=== PATIENT | female | born 1990 | race Hispanic/Latino ===

== ENCOUNTER 2023-12-19 18:11 | Emergency (ER) | payer SELFPAY ==
[2023-12-19 20:17] LABS: Absolute Basophils 0.1 K/uL (0-0.5); Absolute Eosinophils 0.2 K/uL (0-0.5); Absolute Monocytes 0.8 K/uL (0.1-1.3); Absolute Neutrophil 6.6 K/uL (1.8-8.0); Eosinophils % 1.6 % (0-4.4); Hematocrit 32.8 % (36.0-45.0); Hemoglobin 11.1 g/dL (12.0-15.0); MCH 30.7 pg (27.0-35.0); MCHC 33.8 g/dL (32.0-36.0); MCV 90.7 fL (80-100); MPV 7.4 fL (7.6-11.3); Monocytes % 7.3 % (3.3-12.3); Neutrophils % 62.1 % (41.7-73.7); Nucleated Red Blood Cells % 0.1 % (0-0); Platelets 519 thou/uL (152-406); RBC Red Blood Cell Count 3.61 M/uL (3.86-4.86); Red Cell Distribution Width 13.1 % (12.1-15.2)
[2023-12-19 20:31] LABS: Anion Gap 10.9 mEq/L (5.0-15.0); Potassium 3.9 mEq/L (3.5-5.1)
[2023-12-19 21:03] LABS: Specific Gravity 1.008 (1.005-1.030)
[2023-12-19 21:11] LABS: Specific Gravity 1.007 (1.005-1.030); Sqamous Epithelial <5 /HPF (None Seen); Urine Bacteria 20-50 /HPF (<20); Urine Bilirubin NEGATIVE (Negative); Urine Blood 3+ (OVER) (Negative); Urine Clarity Extremely Turbid (Clear); Urine Color Light-Yellow (Yellow); Urine Culture Reflex Order NOT NEEDED; Urine Glucose NEGATIVE (Negative); Urine Ketones NEGATIVE (Negative); Urine Microscopic Reflex YN ORDER UMIC; Urine Mucus Slight /HPF (None Seen); Urine Nitrite 1+ (Negative); Urine Protein TRACE (Negative); Urine RBC >50 /HPF (None Seen); Urine Urobilinogen Normal (Normal); Urine WBC <5 /HPF (<5); Urine pH 5.5 (5.0-7.0)
--- NOTE | 2023-12-19 22:25 | RAD REPORT ---
EXAM DESCRIPTION: CT - Abdomen Pelvis W Contrast - 12/19/2023 9:49 pm CLINICAL HISTORY: Abdominal pain/vaginal bleeding COMPARISON: none. TECHNIQUE: Computed axial tomography of the abdomen pelvis was obtained. 100 cc Isovue-300 was admin istered intravenously. Oral contrast was not requested which limits evaluation of bowel and appendix All CT scans are performed using dose optimization technique as appropriate and may include automated exposure control or mA/KV adjustment according to patient size. FINDINGS: Mild fatty liver The spleen, pancreas and adrenals are unremarkable. Cortical thinning right kidney perhaps secondary to prior inflammation. Several small right renal sanket culi hydronephrosis. 2.6 centimeter low to intermediate density mass left kidney Hounsfield units 37. 1 millimeter calculu s left kidney. Hydronephrosis Small umbilical hernia Normal appendix. No evidence of diverticulitis . 2.9 centimeter left ovarian cyst is benign. No follow-up imaging recommended. No significant free flu id. A tampon is present within the vagina. The cervix is mildly bulky. IMPRESSION: Cervix is mildly bulky. This may be a normal variant or probably less likely a small mas s. Pelvic ultrasound is recommended 2.9 centimeter left ovarian cyst 2.3 centimeter low to intermediate density left kidney may represent a benign complex cyst. Renal ult rasound recommended
--- NOTE | 2023-12-20 00:13 | EDPHYS ---
Physician Documentation [facility] Name: Jenni Ugarte Age: 33 yrs Sex: Female : 1990 Arrival Date: 12/19/2023 Time: 18:11 Bed Treatment Private MD: ED Physician Peter Hurtado HPI: 12/18 18:33 This 33 yrs old Female presents to ER via Ambulatory with complaints of sb4 Vaginal Bleeding. 18:33 The patient presents with vaginal bleeding that is heavy, with clots. Onset: The sb4 symptoms/episode began/occurred 1 month(s) ago. Modifying factors: The symptoms are alleviated by nothing, the symptoms are aggravated by nothing. Associated signs and symptoms: Pertinent positives: cramping, dizziness, Pertinent negatives: vaginal discharge, vomiting. The patient's method of control includes nothing. The patient has not experienced similar symptoms in the past. 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 - Infectious Disease History:: Denies. - Social history:: Smoking status: Patient denies any tobacco usage or history of. ROS: 18:33 Positive for vaginal bleeding, menstrual abnormality, sb4 18:33 Constitutional: Negative for fever, chills, and weight loss, 18:33 Neuro: Positive for dizziness, 18:33 All other systems are negative, Exam: 18:33 Constitutional: This is a well developed, well nourished patient who is awake, alert, sb4 and in no acute distress. Head/Face: Normocephalic, atraumatic. Eyes: Extra-ocular motions intact. Periorbital areas with no swelling, redness, or edema. ENT: Mucous membranes moist. Cardiovascular: Regular rate and rhythm with a normal S1 and S2. Respiratory: Lungs have equal breath sounds bilaterally, clear to auscultation and percussion. No rales, rhonchi or wheezes noted. No increased work of breathing, no retractions or nasal flaring. Abdomen/GI: Soft, non-tender, no distension. Skin: Warm, dry with normal turgor. Normal color with no rashes, no lesions, and no evidence of cellulitis. MS/ Extremity: Pulses equal, no cyanosis. Neurovascular intact. Full, normal range of motion. Neuro: Awake and alert, GCS 15, oriented to person, place, time, and situation. Motor strength 5/5 in all extremities. Sensory grossly intact. Vital Signs: 18:29 BP 179 / 90; Pulse 77; Resp 16; Temp 98.4; Pulse Ox 100% on R/A; Weight 104.33 kg; cm10 Height 5 ft. 6 in. ; Pain 08/16; 12/19 00:28 BP 157 / 92; Pulse 82; Resp 18; Pulse Ox 99% on R/A; kl 12/18 18:29 Body Mass Index 37.12 (104.33 kg, 167.64 cm) cm10 12/18 18:29 Pain Scale: Adult cm10 MDM: 12/18 18:32 Patient medically screened. sb4 12/19 00:11 Data reviewed: vital signs, nurses notes, lab test result(s), radiologic studies, and sb4 as a result, I will discharge patient. Counseling: I had a detailed discussion with the patient and/or guardian regarding the historical points, exam findings, and any diagnostic results supporting the discharge/admit diagnosis, lab results, radiology results, the need for outpatient follow up, an OB/Gyne specialist, to return to the emergency department if symptoms worsen or persist or if there are any questions or concerns that arise at home. 12/18 18:30 Order name: Basic Metabolic Panel; Complete Time: 20:39 sb4 12/18 18:30 Order name: CBC with Diff; Complete Time: 20:21 sb4 12/18 18:30 Order name: Test, Urine; Complete Time: 21:17 sb4 12/18 18:30 Order name: Urinalysis w/ reflexes; Complete Time: 21:11 sb4 12/18 18:31 Order name: Type And Screen; Complete Time: 20:50 sb4 12/18 18:30 Order name: CT Abd/Pelvis - IV Contrast Only; Complete Time: 22:26 sb4 12/18 22:27 Order name: Transvaginal Study (probe) sb4 12/18 18:30 Order name: IV Saline Lock; Complete Time: 20:10 sb4 12/18 18:30 Order name: Labs collected and sent; Complete Time: 20:10 sb4 Administered Medications: 00:15 Drug: Rocephin IV 1 grams IV at calculated rate once; Given slow IV push per pharmacy instructions Route: IV; Rate: calculated rate; Site: right antecubital; 00:28 Follow up: Response: No adverse reaction Disposition: 12/18 20:41 Co-signature as Attending Physician, Peter Hurtado MD I reviewed the patient's care rt provided by the Advanced Practice Provider and agree with the diagnosis and treatment plan. Disposition Summary: 12/20/23 00:12 Discharge Ordered Notes: Location: Home sb4 Problem: an ongoing problem sb4 Symptoms: have improved sb4 Condition: Stable sb4 Diagnosis - Abnormal uterine and vaginal bleeding, unspecified sb4 - UTI/ Urinary tract infection, site not specified sb4 Followup: sb4 - With: Katheryn David MD - When: 1 week - Reason: Recheck today's complaints, Re-evaluation by your physician Discharge Instructions: - Discharge Summary Sheet sb4 - Urinary Tract Infection, Adult, Lrae-qy-Dofa sb4 - Abnormal Uterine Bleeding, Ohoq-wt-Ohow sb4 Forms: - Antibiotic Education sb4 - Patient Portal Instructions sb4 - Leadership Thank You Letter sb4 Prescriptions: - Sprintec (28) 0.25-35 mg-mcg Oral tablet - take 1 tablet ORAL route daily; 1 Pack; Refills: 0, Product Selection Permitted sb4 - Macrobid 100 mg Oral Capsule - take 1 capsule ORAL route every 12 hours for 7 days; 14 capsule; Refills: 0, sb4 Product Selection Permitted Signatures: Dispatcher [employer] EDJoycelyn De Luna, Milena Joshi RN, PA-C PALuan sb4 Peter Hurtado MD MD rt Elo Olsen RN RN cm10 Corrections: (The following items were deleted from the chart) 18:31 18:31 BASIC METABOLIC PANEL+C.LAB.BRZ ordered. EDMS EDMS 18:31 18:31 CBC+H.LAB.BRZ ordered. EDMS EDMS 18:31 18:31 Test, Urine+UC.LAB.BRZ ordered. EDMS EDMS 18:31 18:31 Urinalysis+U.LAB.BRZ ordered. EDMS EDMS 18:31 18:31 Abdomen Pelvis W Con+CT.RAD.BRZ ordered. EDMS EDMS
--- NOTE | 2023-12-20 00:13 | ER ---
Nurse's Notes [facility] Name: Jenni Ugarte Age: 33 yrs Sex: Female : 1990 Arrival Date: 12/19/2023 Time: 18:11 Bed Treatment Private MD: Diagnosis: Abnormal uterine and vaginal bleeding, unspecified;UTI/ Urinary tract infection, site not specified Presentation: 12/18 18:29 Chief complaint: Patient states: Started period 1 month ago and is still bleeding. Pt cm10 reports that she is passing clots. Pt also reports dizziness. Gave 6 months ago and had been having normal periods. Pt also reports burning with urination. Coronavirus screen: Client denies travel out of the [place] in the last 14 days. Ebola Screen: Patient denies travel to an Ebola-affected area in the 21 days before illness onset. No symptoms or risks identified at this time. Initial Sepsis Screen: Does the patient meet any 2 criteria? No. Patient's initial sepsis screen is negative. Does the patient have a suspected source of infection? No. Patient's initial sepsis screen is negative. Risk Assessment: Do you want to hurt yourself or someone else? Patient reports no desire to harm self or others. Onset of symptoms was December 19, 2023. 18:29 Method Of Arrival: Ambulatory 10 18:29 Acuity: PAULETTE 3 cm10 18:31 Chief complaint:. cm10 Triage Assessment: 18:31 General: Appears in no apparent distress. comfortable, Behavior is calm, cooperative. cm10 Neuro: No deficits noted. Level of Consciousness is awake, alert, obeys commands, Oriented to person, place, time, situation, Appropriate for age. Respiratory: No deficits noted. Airway is patent Respiratory effort is even, unlabored, Respiratory pattern is regular, symmetrical. 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 - Infectious Disease History:: Denies. - Social history:: Smoking status: Patient denies any tobacco usage or history of. Screenin/13 00:29 [facility] ED Fall Risk Assessment (Adult) History of falling in the last 3 months, kl including since admission No falls in past 3 months (0 pts) Confusion or Disorientation No (0 pts) Intoxicated or Sedated No (0 pts) Impaired Gait No (0 pts) Mobility Assist Device Used No (0 pt) Altered Elimination No (0 pt) Score/Fall Risk Level 0 - 2 = Low Risk Oriented to surroundings, Maintained a safe environment. Abuse screen: Denies threats or abuse. Nutritional screening: No deficits noted. Tuberculosis screening: No symptoms or risk factors identified. Assessment: 00:29 Pain: Denies pain. : Reports vaginal bleeding that is heavy flow. Vital Signs: 12/18 18:29 BP 179 / 90; Pulse 77; Resp 16; Temp 98.4; Pulse Ox 100% on R/A; Weight 104.33 kg; cm10 Height 5 ft. 6 in. ; Pain 08/16; 12/19 00:28 BP 157 / 92; Pulse 82; Resp 18; Pulse Ox 99% on R/A; kl 12/18 18:29 Body Mass Index 37.12 (104.33 kg, 167.64 cm) cm10 12/18 18:29 Pain Scale: Adult cm10 ED Course: 12/18 18:15 Patient arrived in ED. mg5 18:17 Milena Bonner PA-C is PHCP. sb4 18:17 Peter Hurtado MD is Attending Physician. sb4 18:31 Triage completed. cm10 18:31 Arm band placed on Patient placed in waiting room. cm10 19:51 Radiology exam delayed due to IV insertion attempt and/or patient not having nj appropriate IV at this time. 19:52 Radiology exam delayed due to lab results not completed at this time. (BUN/Creatinine). nj 19:52 Radiology exam delayed due to test not completed at this time. nj 20:05 Inserted saline lock: 20 gauge in left antecubital area, using aseptic technique. Blood nj1 collected. Flushed with 10 mL NS. 20:10 Basic Metabolic Panel Sent. nj1 20:10 CBC with Diff Sent. nj1 20:10 Type And Screen Sent. nj1 21:51 CT Abd/Pelvis - IV Contrast Only In Process Unspecified. EDMS 22:43 Transvaginal Study (probe) In Process Unspecified. EDMS 12/19 00:12 Katheryn David MD is Referral Physician. sb4 00:30 No provider procedures requiring assistance completed. IV discontinued, intact, kl bleeding controlled, No redness/swelling at site. Pressure dressing applied. 00:31 Patient has correct armband on for positive identification. kl Administered Medications: 00:15 Drug: Rocephin IV 1 grams IV at calculated rate once; Given slow IV push per pharmacy kl instructions Route: IV; Rate: calculated rate; Site: right antecubital; 00:28 Follow up: Response: No adverse reaction kl Outcome: 00:12 Discharge ordered by . sb4 00:30 Discharged to home ambulatory, kl 00:30 Condition: stable 00:30 Discharge instructions given to patient, Instructed on discharge instructions, follow up and referral plans. medication usage, Demonstrated understanding of instructions, follow-up care, medications, Prescriptions given X 2, 00:31 Patient left the ED. Signatures: Dispatcher [employer] EDAR Joycelyn Husain RN RN James Dumont Sophia PA-Rose Mary PA-Rose Mary sb4 Yumiko Stuart RN RN nj1 Elo Olsen RN RN cm10 Stefany Ortiz mg5 Corrections: (The following items were deleted from the chart) 08 18:32 18:29 Chief complaint: Patient states: Started period 1 month ago and is still cm10 bleeding. Pt reports that she is passing clots. Pt also reports dizziness. Gave 6 months ago and had been having normal periods. cm10
[2023-12-20] MEDS ORDERED: CEFTRIAXONE 1000 MG/VIAL ONE (00:18)
[2023-12-20 00:35] VITALS: TEMP 98.4
[2023-12-20 00:36] VITALS: BP 157/92; O2SAT 99
--- NOTE | 2023-12-20 12:53 | RAD REPORT ---
EXAM DESCRIPTION: US - Transvaginal Study Probe - 12/19/2023 10:41 pm CLINICAL HISTORY: VAGINAL BLEEDING TECHNIQUE: Real-time transvaginal pelvic ultrasound with image documentation. Transvaginal imaging was used for better evaluation of the endometrium and adnexa. COMPARISON: No relevant prior studies available. FINDINGS: Uterus/cervix: The uterus is anteverted and measures 10.5 x 5.6 x 6.4 cm. The endometria l stripe measures 8 mm in thickness. The endometrial stripe is mildly heterogeneous with trace fluid. No myometrial mass. Right ovary: The right ovary measures 3.5 x 1.6 x 2.1 cm. Normal blood flow. Left ovary: The left ovary measures 3.5 x 2.7 x 2.7 cm. There is a 3 x 2.1 x 2.4 cm anechoic/simple cyst. Normal blood flow. Free fluid: No free fluid. Bladder: Empty bladder which cannot be evaluated with this probe. IMPRESSION: 1. Mildly heterogeneous endometrium with trace endometrial fluid presumably related to hemorrhagic products in light of reported history. 2. 3 cm left ovarian simple cyst. No follow-up imaging is recommended. Reference: Radiology 2019 No v;[id number] Electronically signed by: Mariano Kearney MD 12/20/2023 12:08 AM [employer] Due to temporary technical issues with the PACS/Fluency reporting system, reports are being signed by the in house radiologist without review as a courtesy to ensure prompt reporting. The interpreting r adiologist is fully responsible for the content of the report.
== END 2023-12-20 00:31 | disposition home or self-care (01) ==
LOC: ER 18:11
DX: N93.9 Abnormal uterine and vaginal bleeding, unspecified (principal); N39.0 Urinary tract infection, site not specified
CPT/HCPCS: 36415; 74177; 76830; 80048; 81001; 81025; 85025; 86850; 86900; 86901; J0696; Q9967